=== PATIENT | female | born 1980 | race Caucasian/White ===

== ENCOUNTER 2016-11-10 08:30 | Inpatient (IN) | payer MEDICAID, OTHER ==
[~2016-11-10] VITALS: Ht 162.6 cm; Wt 109.0 kg
[2016-11-10] MEDS ORDERED: ONDANSETRON (ODT) 4 MG TAB ODT STA (09:00)
[2016-11-10] MEDS ORDERED: SOD CHLORIDE 0.9% 1,000 ML IV STA (09:00)
[2016-11-10] MEDS ORDERED: morphine 4 MG/ML VIAL IV STA (09:00)
[2016-11-10] MEDS ORDERED: DIPHENHYDRAMINE 50 MG INJ IV ONE ×2 (09:00→14:00)
[2016-11-10 09:38] LABS: ADD UMIC NO; URINE BILIRUBIN (Dip) NEGATIVE (NEGATIVE); URINE BLOOD (Dip) NEGATIVE (NEGATIVE); URINE COLOR YELLOW (YELLOW); URINE GLUCOSE (Dip) NEGATIVE (NEGATIVE); URINE KETONES (Dip) NEGATIVE (NEGATIVE); URINE LEUKOCYTE ESTERASE (Dip) NEGATIVE (NEGATIVE); URINE NITRITE (Dip) NEGATIVE (NEGATIVE); URINE TOTAL PROTEIN (Dip) NEGATIVE (NEGATIVE); URINE UROBILINOGEN (Dip) 0.2 E.U./dL (0.1-1.0)
[2016-11-10] MEDS ORDERED: ONDANSETRON 4 MG INJ IV STA ×2 (09:54→12:42)
[2016-11-10 10:17] LABS: ADD SCAN DIFF NO
[2016-11-10 10:18] LABS: BASOPHIL # 0.1 10^3/ul (0.0-0.1); BASOPHILS % 0.5 % (0.0-2.0); EOSINOPHILS # 0.2 10^3/ul (0.0-0.5); EOSINOPHILS % 2.5 % (0.0-7.0); HEMATOCRIT 38.5 % (37.0-47.0); HEMOGLOBIN 12.4 g/dl (12.0-16.0); LYMPHOCYTES # 2.3 10^3/ul (0.8-2.9); LYMPHOCYTES % 23.9 % (15.0-51.0); MEAN CORPUSCULAR HEMOGLOBIN 27.6 pg (29.0-33.0); MEAN CORPUSCULAR HGB CONC 32.2 g/dl (32.0-37.0); MEAN CORPUSCULAR VOLUME 85.7 fl (82.0-101.0); MEAN PLATELET VOLUME 10.1 fl (7.4-10.4); MONOCYTE # 0.5 10^3/ul (0.3-0.9); MONOCYTES % 5.5 % (0.0-11.0); NEUTROPHIL # 6.4 10^3/ul (1.6-7.5); NEUTROPHILS % 67.4 % (39.0-77.0); PLATELET COUNT 365 10^3/UL (140-415); RED BLOOD COUNT 4.49 10^6/ul (4.20-5.40); RED CELL DISTRIBUTION WIDTH 15.2 % (11.5-14.5); WHITE BLOOD COUNT 9.5 10^3/ul (4.8-10.8)
[2016-11-10 10:26] LABS: ALBUMIN 4.2 g/dl (3.3-4.9); POTASSIUM 4.2 mmol/L (3.5-5.1)
[2016-11-10 10:28] LABS: CREATININE 0.59 mg/dl (0.44-1.00)
[2016-11-10 10:29] LABS: ALBUMIN/GLOBULIN RATIO 0.97; BILIRUBIN,INDIRECT 0.1 mg/dl (0-1.1); BILIRUBIN,TOTAL 0.1 mg/dl (0.2-1.3); TOTAL PROTEIN 8.5 g/dl (6.1-8.1)
[2016-11-10] MEDS ORDERED: HYDROmorphONE 1 MG/ML SYG IV STA ×2 (10:50→12:42)
--- NOTE | 2016-11-10 11:01 | RADRPT ---
PROCEDURE: CT Abdomen and Pelvis without contrast. CLINICAL INDICATION: Right upper quadrant pain. Recent ERCP with stent placement. TECHNIQUE: CT scan of the abdomen and pelvis without contrast was performed on a multidetector hig h-resolution CT scanner. The patient was scanned without intravenous contrast. Coronal and sagittal reformatted images were obtained from the axial source images. Images were reviewed on a high-resol Flagr PACS workstation. The total exam CTDI equals 16.97 mGy and the total exam DLP equals 1151.55 m Gy-cm. One or more of the following dose reduction techniques were used: Automated exposure control. Adjustment of the mA and/or kV according to patient size. Use of iterative reconstruction technique. COMPARISON: None FINDINGS: CT abdomen: The lung bases are clear. The heart size is normal, without pericardial thickening or effusion. Th e liver is normal in size and density without focal mass or intrahepatic biliary dilatation. The sp guero is normal in size and homogeneous in density. The stomach is partially collapsed, but is gross ly unremarkable. The pancreas as visualized is normal. The gallbladder is surgically absent. There is pneumobilia in the left hepatic lobe. There is no i ntrahepatic or extrahepatic biliary ductal dilatation. There is no common bile duct stent in place. The adrenal glands are symmetric and normal. The kidneys are symmetrically unremarkable as well. No renal calculus or obstructive uropathy or mass lesion is seen. The aorta is of normal caliber. There is no retroperitoneal lymphadenopathy. The taylor hepatis navneet on is clear. The bowel and mesentery, as visualized, are equally unremarkable. CT pelvis: The small bowel loops situated within the pelvis are unremarkable. There are sutures in the periceca l area likely related to prior appendectomy. The pelvic organs are normal. The pelvic sidewalls and inguinal regions are clear. The sigmoid colon and rectum are unremarkable. No mass, lymphadenopat hy, or free fluid is seen. No acute inflammation is seen. No osteolytic or osteoblastic lesion is d etected. IMPRESSION: 1. No mass, lymphadenopathy, or focal acute inflammatory process is identified. 2. Status post cholecystectomy. No biliary ductal dilatation. Pneumobilia is noted in the left he patic lobe. No biliary stent is seen in the common bile duct. 3. Normal appearance of the pancreas without peripancreatic fluid collection. RPTAT: BB .Tavares Schulte MD, MD Date Time Electronically viewed and signed by .Tavares Schulte MD, MD on 11/10/2016 11:00 .O/
--- NOTE | 2016-11-10 11:02 | ERD ---
ER Documentation Chief Complaint Date/Time DATE: 11/10/16 TIME: 10:58 Chief Complaint right upper abdominal pain for the past few days. recent ercp HPI This is a 36-year-old female that presents to the ER with sharp right upper quadrant abdominal pain that started on Wednesday. Patient had a cholecystectomy 9 years ago and on she underwent an ERCP she had 3 stones in her common bile ducts. Patient now has severe pain. It radiates to her back. She does have nausea and vomiting. Vomiting is nonbilious nonbloody. She denies any diarrhea. Patient does not have any fevers or chills. She denies any urine frequency or dysuria. Denies any alcohol tobacco or drug use. ROS 12 point review of systems was done, all negative except per HPI. Allergies Allergies: Coded Allergies: ibuprofen (Unverified Allergy, Unknown, RASH, 11/10/16) ketorolac (Unverified Allergy, Unknown, SOB, 11/10/16) PMhx/Soc Hx Alcohol Use: No Hx Substance Use: No Hx Tobacco Use: No Physical Exam Vitals Vital Signs Date Time Temp Pulse Resp B/P Pulse Ox O2 Delivery O2 Flow Rate FiO2 11/10/16 08:34 98.5 82 20 119/63 98 Physical Exam GENERAL: The patient is well developed and appropriate for usual state of health , in no apparent distress. HEENT: Atraumatic. Conjunctivae are pink. Pupils equal, round, and reactive to light. Extraocular muscles are grossly intact. Bilateral tympanic membranes are clear with no evidence of erythema, effusion or dulling of the light reflex. The oropharynx is clear with no erythema or exudates. NECK: C-spine is soft and supple. There is no cervical lymphadenopathy. CHEST: Clear to auscultation bilaterally. There are no rales, wheezes or rhonchi. HEART: Regular rate and rhythm. No murmurs, clicks, rubs or gallops. ABDOMEN: Soft and nondistended . Tender to palpation in the right upper quadrant good bowel sounds. No rebound or guarding. No gross peritonitis. No gross organomegaly or masses. positive Mistry sign negative McBurney point tenderness. NEURO: Alert and oriented. Result Diagram: 11/10/16 0945 11/10/16 0945 Results 24 hrs Laboratory Tests Test 11/10/16 09:10 11/10/16 09:45 Urine Bilirubin NEGATIVE Urine Clarity CLEAR Urine Color YELLOW Urine Glucose NEGATIVE% Urine Hemoglobin NEGATIVE Urine Ketones NEGATIVE Urine Leukocyte Esterase NEGATIVE Urine Nitrite NEGATIVE Urine Specific Ewell >=1.030 Urine Total Protein NEGATIVE Urine Urobilinogen 0.2 E.U./dL Urine pH 5.5 Alanine Aminotransferase (ALT/SGPT) 28IU/L Albumin 4.2g/dl Albumin/Globulin Ratio 0.97 Alkaline Phosphatase 135IU/L Anion Gap 18 Aspartate Amino Transf (AST/SGOT) 23IU/L Basophils # 0.110^3/ul Basophils % 0.5% Blood Urea Nitrogen 12mg/dl Calcium Level 9.0mg/dl Carbon Dioxide Level 24mmol/L Chloride Level 103mmol/L Creatinine 0.59mg/dl Direct Bilirubin 0.00mg/dl Eosinophils # 0.210^3/ul Eosinophils % 2.5% Globulin 4.30g/dl Glucose Level 101mg/dl Hematocrit 38.5% Hemoglobin 12.4g/dl Indirect Bilirubin 0.1mg/dl Lipase 999U/L Lymphocytes # 2.310^3/ul Lymphocytes % 23.9% Mean Corpuscular Hemoglobin 27.6pg Mean Corpuscular Hemoglobin Concent 32.2g/dl Mean Corpuscular Volume 85.7fl Mean Platelet Volume 10.1fl Monocytes # 0.510^3/ul Monocytes % 5.5% Neutrophils # 6.410^3/ul Neutrophils % 67.4% Nucleated Red Blood Cells # 0.010^3/ul Nucleated Red Blood Cells % 0.0/100WBC Platelet Count 96931^3/UL Potassium Level 4.2mmol/L Red Blood Count 4.4910^6/ul Red Cell Distribution Width 15.2% Sodium Level 141mmol/L Total Bilirubin 0.1mg/dl Total Protein 8.5g/dl White Blood Count 9.510^3/ul Current Medications Medications (Trade) Dose Ordered Sig/Hayde Route PRN Reason Start Time Stop Time Status Last Admin Dose Admin Sodium Chloride (NS) 1,000 ml @ 1,000 mls/hr Q1H STAT IV 11/10/16 09:00 11/10/16 09:59 DC 11/10/16 10:05 Morphine Sulfate (morphine) 4 mg ONCE STAT IV 11/10/16 09:00 11/10/16 09:02 DC 11/10/16 10:04 Diphenhydramine HCl (Benadryl) 25 mg ONCE ONCE IV 11/10/16 09:00 11/10/16 09:02 DC 11/10/16 10:01 Ondansetron HCl (Zofran Odt) 4 mg ONCE STAT ODT 11/10/16 09:00 11/10/16 09:02 DC Ondansetron HCl (Zofran Inj) 4 mg ONCE STAT IV 11/10/16 09:54 11/10/16 09:56 DC 11/10/16 09:58 Hydromorphone HCl (Dilaudid) 0.5 mg ONCE STAT IV 11/10/16 10:50 11/10/16 10:52 DC Procedures/MDM Differential Diagnosis: GERD, gastritis, peptic ulcer disease, pancreatitis, cholecystitis, choledocholithiasis, biliary colic, cholangitis, Pehm-Khpm-Kcapae , ACS/PR, Pnuemonia. Patient does appear to have pancreatitis. She will be transferred to ER on further management and care Departure Diagnosis: Primary Impression: Pancreatitis Condition: Stable TRAN LAWRENCE Nov 10, 2016 11:02
[2016-11-10] MEDS ORDERED: SOD CHLORIDE 0.9% 1,000 ML IV ONE (13:00)
[2016-11-10] MEDS ORDERED: ONDANSETRON 4 MG INJ IV PRN (13:30)
[2016-11-10] MEDS ORDERED: ACETAMINOPHEN 325 MG TAB PO PRN ×2 (13:30→14:00)
[2016-11-10] MEDS ORDERED: OXYCODONE/ACETAMINOPHEN (5/325) TAB PO PRN (14:00)
[2016-11-10] MEDS ORDERED: NACL 0.9% 3 ML SYG IV SCH (14:00)
[2016-11-10] MEDS ORDERED: HYDROCODONE/APAP (5/325) TAB PO PRN ×2 (14:00)
[2016-11-10] MEDS ORDERED: DOCUSATE SODIUM 100 MG CAP PO PRN (14:00)
[2016-11-10] MEDS ORDERED: morphine 2 MG INJ IV PRN (14:00)
[2016-11-10] MEDS ORDERED: MAGNESIUM HYDROXIDE 30ML CUP PO PRN (14:00)
[2016-11-10] MEDS ORDERED: BISACODYL 10 MG SUPP PR PRN (14:00)
[2016-11-10] MEDS ORDERED: ACETAMINOPHEN 650 MG SUPP PR PRN (14:00)
[2016-11-10] MEDS: LACTATED RINGER'S 1,000 ML IV SCH ×2 (14:19→23:49)
[2016-11-10 14:21] VITALS: TEMP 97.8
[2016-11-10 15:45] VITALS: Ht 162.6 cm; Wt 109.0 kg
[2016-11-10 16:14] VITALS: BP 125/60; PULSE 77; RESP 18
[2016-11-10] MEDS: HYDROmorphONE 1 MG/ML SYG IV PRN ×3 (17:26→23:36)
[2016-11-10] MEDS: PANTOPRAZOLE 40 MG INJ IV SCH (17:31)
--- NOTE | 2016-11-10 17:41 | HP ---
DATE OF ADMISSION: 11/10/2016 CHIEF COMPLAINT: Abdominal pain. HISTORY OF PRESENT ILLNESS: This is a 36-year-old female with reported past medical history of panc reatitis 9 years ago when she was as well as cholecystectomy 9 years ago, who came to [facility] due to reports of abdominal pain. The patient did report that she did recei ve an ERCP for common bile duct stones with 3 stones removed and stent placed on , 7. She did report that status post procedure, she had been having increased abdominal pain. She di d report that she had multiple attempts to try and contact her reverse unit operator, but her gastroent erologist would not answer her calls back. Her pain had progressively gotten worse with subjective nausea, vomiting and came to [facility] due to the aforementioned issues. She did have abdominal CT scan that did show no mass, lymphadenopathy or focal acute inflammatory process. There is also seen status post cholecystectomy and no biliary ductal dilation ____ was noted pneumo bilia in left hepatic lobe. No biliary stent was seen in the common bile duct. It also showed norm al appearance of the pancreas without peripancreatic fluid collection. On further lab draw, the pat ient did have elevation of lipase at 999. The patient likely was with post-ERCP pancreatitis. The patient remained afebrile. Vital signs stable. We will evaluate her for the aforementioned issues. MEDICAL AND SURGICAL HISTORY: 1. Pancreatitis 9 years ago. 2. History of cholecystectomy. 3. Morbid obesity. SOCIAL HISTORY: The patient denies any cigarette smoking, alcohol consumption or illicit drug use. ALLERGIES: NO KNOWN ALLERGIES. FAMILY HISTORY: Noncontributory. HOME MEDICATIONS: None. REVIEW OF SYSTEMS: A 12-point review of systems obtained and entirely negative except that mentione d in history of present illness. PHYSICAL EXAMINATION: VITAL SIGNS: Temperature is 98.1, pulse 77, respiratory rate 18, blood pressure 125/60 and pulse ox is 99% on room air. GENERAL: This is a 36-year-old female, appears stated age, in mild distress secondary to abdominal pain. EYES: Pupils equal, round and reactive to light. Anicteric sclerae. NECK: Supple, nontender, no JVD. CARDIAC: S1, S2 auscultated, regular rate. PULMONARY: Clear to auscultation bilaterally. No wheezing or rhonchi. ABDOMEN: Tender upon palpation, more in the epigastric area. Bowel sounds active. EXTREMITIES: No edema bilateral lower extremities. SKIN: Warm, dry, and intact. NEUROLOGIC: Alert, oriented x3. LABORATORY DATA: Sodium 141, potassium 4.2, BUN 12, creatinine 0.59. WBC 9.5, hemoglobin 12.4, hem atocrit is 30.5 and platelets are 365. IMAGING: Abdominal pelvic CT scan did show normal appearance of the pancreas without peripancreatic fluid collection. Status post cholecystectomy. No biliary ductal dilation. Pneumobilia are noted in the left hepatic lobe. No biliary stent seen in the common bile duct. IMPRESSION AND PLAN: 1. Abdominal pain secondary to pancreatitis. Will keep patient n.p.o. for now. Continue on IV hyd ration. We will provide with appropriate analgesics. 2. Recent ERCP with removal of stones and reported stent placement. We will follow up on report. Continue IV hydration for now. 3. Morbid obesity. Weight reduction is advised. 4. Deep venous thrombosis prophylaxis: SCDs and early ambulation. 4. Gastroesophageal reflux disease prophylaxis: PPI. ADMISSION PROCESS TIME: 40 minutes. Discussed plan of care with Dr. Fortune. Dictated By: ALMA LEONARD NP for NISHANT FORTUNE MD RR/MARK Conf#: [id number] DID#: [id number]
[2016-11-10] MEDS: ONDANSETRON 4 MG INJ IV PRN (20:38)
[2016-11-10 20:43] VITALS: BP 133/62; RESP 18
[2016-11-10] MEDS: DIPHENHYDRAMINE 50 MG INJ IV PRN (21:24)
[2016-11-11] MEDS: ONDANSETRON 4 MG INJ IV PRN ×2 (02:51→09:36)
[2016-11-11] MEDS: HYDROmorphONE 1 MG/ML SYG IV PRN ×7 (02:51→21:46)
[2016-11-11] MEDS: DIPHENHYDRAMINE 50 MG INJ IV PRN ×4 (03:25→21:46)
[2016-11-11] MEDS: PANTOPRAZOLE 40 MG INJ IV SCH (05:55)
[2016-11-11] MEDS: LACTATED RINGER'S 1,000 ML IV SCH ×2 (06:00→15:45)
[2016-11-11 07:29] LABS: ALBUMIN 4.1 g/dl (3.3-4.9)
[2016-11-11 07:30] LABS: POTASSIUM 3.8 mmol/L (3.5-5.1)
[2016-11-11 07:32] LABS: BILIRUBIN,INDIRECT 0.5 mg/dl (0-1.1); BILIRUBIN,TOTAL 0.5 mg/dl (0.2-1.3); CREATININE 0.64 mg/dl (0.44-1.00)
[2016-11-11 07:33] LABS: ALBUMIN/GLOBULIN RATIO 1.02; CALCIUM 8.9 mg/dl (8.4-10.2); PHOSPHORUS 3.4 mg/dl (2.5-4.9); TOTAL PROTEIN 8.1 g/dl (6.1-8.1)
[2016-11-11 07:34] LABS: CHOL/HDL RATIO 2.7 RATIO; MAGNESIUM 1.7 mg/dl (1.7-2.5)
[2016-11-11 07:50] LABS: T3 UPTAKE 37.7 % (23.5-40.5)
[2016-11-11 08:04] LABS: THYROID STIMULATING HORMONE 3.23 MIU/L (0.465-4.680)
[2016-11-11 08:14] VITALS: BP 99/51; RESP 20
[2016-11-11 08:43] LABS: ADD SCAN DIFF NO
[2016-11-11 08:46] LABS: POTASSIUM 4.7 mmol/L (3.5-5.1)
[2016-11-11 08:48] LABS: BASOPHIL # 0.1 10^3/ul (0.0-0.1); BASOPHILS % 0.6 % (0.0-2.0); EOSINOPHILS # 0.2 10^3/ul (0.0-0.5); EOSINOPHILS % 2.6 % (0.0-7.0); HEMATOCRIT 36.7 % (37.0-47.0); HEMOGLOBIN 11.8 g/dl (12.0-16.0); LYMPHOCYTES # 2.2 10^3/ul (0.8-2.9); LYMPHOCYTES % 27.2 % (15.0-51.0); MEAN CORPUSCULAR HGB CONC 32.2 g/dl (32.0-37.0); MEAN PLATELET VOLUME 10.3 fl (7.4-10.4); MONOCYTE # 0.5 10^3/ul (0.3-0.9); MONOCYTES % 5.8 % (0.0-11.0); NEUTROPHIL # 5.2 10^3/ul (1.6-7.5); NEUTROPHILS % 63.6 % (39.0-77.0); PLATELET COUNT 389 10^3/UL (140-415); RED BLOOD COUNT 4.22 10^6/ul (4.20-5.40); RED CELL DISTRIBUTION WIDTH 14.7 % (11.5-14.5); WHITE BLOOD COUNT 8.2 10^3/ul (4.8-10.8)
[2016-11-11 08:49] LABS: CREATININE 0.61 mg/dl (0.44-1.00)
[2016-11-11] MEDS ORDERED: ONDANSETRON INJ 8 MG in SOD CHLORIDE 0.9% 50 ML IV PRN (12:30)
[2016-11-11] MEDS ORDERED: ONDANSETRON 4 MG INJ IV PRN (14:00)
--- NOTE | 2016-11-11 16:18 | PN ---
Date/Time of Note Date/Time of Note DATE: 11/11/16 TIME: 16:16 Assessment/Plan VTE Prophylaxis VTE Prophylaxis Intervention: SCD's Lines/Catheters IV [facility] Peripheral IV Urinary Cath still in place: No Assessment/Plan Chief Complaint/Hosp Course Assessment and plan 1. Abdominal pain secondary to acute pancreatitis. Monitor lipase. Continue IV hydration. Has good response with analgesics. Antiemetics for nausea 2. Recent ERCP with removal of stones and reported some placement. Continue IV hydration. Of note CT scan of the abdomen showed no stent placement. We'll follow-up with the results of this. 3. Morbid obesity. Weight reduction advised DVT prophylaxis: SCDs and early ambulation GERD prophylaxis: PPI Disposition and plan: Still with abdominal pain. Await clinical improvement pancreatitis. Continue IV hydration. Discussed plan of care with Dr. Fortune Problems: Subjective 24 Hr Interval Summary Free Text/Dictation Still with reported abdominal pain. Only minimally improved Exam/Review of Systems Vital Signs Vitals Vital Signs Date Time Temp Pulse Resp B/P Pulse Ox O2 Delivery O2 Flow Rate FiO2 11/11/16 08:14 97.7 71 20 99/51 96 11/10/16 16:14 Room Air Intake and Output 11/10/16 11/10/16 11/11/16 15:00 23:00 07:00 Intake Total 2000 ml 1000 ml Balance 2000 ml 1000 ml Exam General: Morbidly obese. Less distress noted. Still with reported abdominal pain Eyes: pupils equal round, Anicteric sclera Neck: Supple nontender, no JVD Cardiac: Regular rate. S1-S2 auscultated Pulmonary: No coarse rhonchi or breathing auscultated GI:. On palpation more in epigastric area. Bowel sounds remain active Extremities: No edema bilateral lower extremities Skin: Clean dry and intact Neurologic: Alert to person place and time and situation Results Result Diagram: 11/11/16 0530 11/11/16 0530 Results 24 hrs Laboratory Tests Test 11/11/16 05:30 Alanine Aminotransferase (ALT/SGPT) 31 Albumin 4.1 Albumin/Globulin Ratio 1.02 Alkaline Phosphatase 133 H Anion Gap 15 Aspartate Amino Transf (AST/SGOT) 27 Basophils # 0.1 Basophils % 0.6 Blood Urea Nitrogen 10 Calcium Level 9.0 Carbon Dioxide Level 28 Chloride Level 102 Cholesterol Level 176 Cholesterol/HDL Ratio 2.7 Creatinine 0.61 Direct Bilirubin 0.00 Eosinophils # 0.2 Eosinophils % 2.6 Free Thyroxine Index 3.24 Globulin 4.00 H Glucose Level 78 HDL Cholesterol 65 Hematocrit 36.7 L Hemoglobin 11.8 L Hemoglobin A1c 5.4 Indirect Bilirubin 0.5 LDL Cholesterol, Calculated 100 Lipase 1311 H Lymphocytes # 2.2 Lymphocytes % 27.2 Magnesium Level 1.7 Mean Corpuscular Hemoglobin 28.0 L Mean Corpuscular Hemoglobin Concent 32.2 Mean Corpuscular Volume 87.0 Mean Platelet Volume 10.3 Monocytes # 0.5 Monocytes % 5.8 Neutrophils # 5.2 Neutrophils % 63.6 Nucleated Red Blood Cells # 0.0 Nucleated Red Blood Cells % 0.0 Phosphorus Level 3.4 Platelet Count 389 Potassium Level 4.7 Red Blood Count 4.22 Red Cell Distribution Width 14.7 H Sodium Level 140 Thyroid Stimulating Hormone (TSH) 3.230 Thyroxine (T4) 8.6 Total Bilirubin 0.5 Total Protein 8.1 Triglycerides Level 57 Triiodothyronine (T3) Uptake 37.7 White Blood Count 8.2 Medications Medications Current Medications Acetaminophen (Tylenol Tab) 650 mg Q6H PRN PO PAIN LEVEL 1-3 OR FEVER; Start at 14:00 Acetaminophen (Tylenol Supp) 650 mg Q6H PRN VT PAIN LEVEL 1-3 OR FEVER; Start 11/10/16 at 14:00 Acetaminophen/ Hydrocodone Bitart ([place] (5/325)) 1 tab Q6H PRN PO MODERATE PAIN LEVEL 4-6; Start 11/10/16 at 14:00 Acetaminophen/ Hydrocodone Bitart ([place] (5/325)) 2 tab Q6H PRN PO SEVERE PAIN LEVEL 7-10; Start 11/10/16 at 14:00 Oxycodone/ Acetaminophen (Percocet (5/ 325)) 2 tab Q6H PRN PO SEVERE PAIN LEVEL 7-10; Start 11/10/16 at 14:00 Docusate Sodium (Colace) 100 mg Q12H PRN PO CONSTIPATION; Start 11/10/16 at 14: 00 Magnesium Hydroxide (Milk Of Mag) 30 ml DAILY PRN PO CONSTIPATION; Start at 14:00 Bisacodyl 10 mg 10 mg DAILY PRN [place] CONSTIPATION; Start 11/10/16 at 14:00 Lactated Ringer's (Lr) 1,000 ml @ 100 mls/hr Q10H IV Last administered on 15:45; Admin Dose 100 MLS/HR; Start 11/10/16 at 14:00 Hydromorphone HCl (Dilaudid) 1 mg Q3 PRN IV PAIN Last administered on 11/11/16 15:30; Admin Dose 1 MG; Start 11/10/16 at 17:30 Diphenhydramine HCl (Benadryl) 25 mg Q6H PRN IV itching Last administered on 15:30; Admin Dose 25 MG; Start 11/10/16 at 21:00 Pantoprazole 40 mg 40 mg BID IV ; Start 11/11/16 at 21:00 Ondansetron HCl/ Sodium Chloride (Zofran Inj/NS) 54 ml @ 216 mls/hr Q6H PRN IV NAUSEA AND/OR VOMITING; Start 11/11/16 at 12:30 ALMA LEONARD Nov 11, 2016 16:18
[2016-11-11] MEDS ORDERED: PANTOPRAZOLE 40 MG INJ IV SCH (21:00)
[2016-11-11 21:28] VITALS: BP 121/68; RESP 18
== END 2016-11-11 22:55 | disposition left against medical advice (07) | DRG 439 ==
LOC: FTE 08:30 → PP2 13:17
PROVIDERS: ADMIT Internal Medicine; ATTEND Internal Medicine
DX: K85.90 Acute pancreatitis without necrosis or infection, unspecified (principal); Z68.41 Body mass index [BMI] 40.0-44.9, adult; Z90.49 Acquired absence of other specified parts of digestive tract; E66.01 Morbid (severe) obesity due to excess calories; Z98.890 Other specified postprocedural states
CPT/HCPCS: 36415; 74176; 80048; 80053; 80061; 81003; 83036; 83690; 83735; 84100; 84436; 84443; 84479; 85025; 96361; 96374; 96375; 96376; C9113; J1170; J1200; J2270; J2405; J7030; J7120